=== PATIENT | female | born 1980 | race Caucasian/White ===

== ENCOUNTER → 2016-12-07 | Outpatient (CLI) | payer OTHER ==
[~2016-12-07] VITALS: Ht 167.6 cm; Wt 133.8 kg
[~2016-12-07] MED LIST: LIPITOR10 MG PO; PAXIL30 MG PO; PROTONIX40 MG PO; XANAX0.5 MG PO
== END | disposition home or self-care (01) ==
LOC: AMB 11:45
PROC: 0DJ08ZZ Inspection of Upper Intestinal Tract, Via Natural or Artificial Opening Endoscopic (ICD-10-PCS; principal; 2016-12-07)
DX: K29.70 Gastritis, unspecified, without bleeding (principal); K21.9 Gastro-esophageal reflux disease without esophagitis; E66.01 Morbid (severe) obesity due to excess calories; Z68.42 Body mass index [BMI] 45.0-49.9, adult; E28.2 Polycystic ovarian syndrome; Z87.891 Personal history of nicotine dependence; Z82.49 Family history of ischemic heart disease and other diseases of the circulatory system; Z83.49 Family history of other endocrine, nutritional and metabolic diseases
CPT/HCPCS: B4087; J2250

== ENCOUNTER 2017-01-19 06:43 | Inpatient (IN) | payer OTHER ==
[~2017-01-19] VITALS: Ht 170.2 cm; Wt 137.3 kg
[2017-01-19 07:35] VITALS: BP 134/80
[2017-01-19 12:55] VITALS: BP 141/87
[2017-01-19 19:06] VITALS: BP 164/97
[2017-01-19 20:15] VITALS: BP 131/69
[2017-01-19 23:57] VITALS: BP 134/73
[2017-01-20 03:50] VITALS: BP 158/94
[2017-01-20 05:19] LABS: POINT-OF-CARE METER ID UU14162508
[2017-01-20 06:57] LABS: ANION GAP 8 MEQ/L (2-14); CHLORIDE 102 MEQ/L (99-109); GFR ESTIMATE (CALCULATED) > 59 mL/min/; GLUCOSE 111 mg/dL (70-99); MAGNESIUM 2.1 mg/dl (1.3-2.7); POTASSIUM 4.4 MEQ/L (3.7-5.4); SAMPLE HEMOLYSIS CHECK 0; SAMPLE ICTERIC CHECK 0; SAMPLE LIPEMIA CHECK 0; SODIUM 138 MEQ/L (136-147); UREA NITROGEN (BUN) 10 mg/dL (9-23)
[2017-01-20 06:58] LABS: HEMATOCRIT 33.1 % (36.0-46.0); MCH 25.8 PG (29.0-34.0); MCHC 32.3 G/DL (30.0-36.0); MEAN PLAT.VOLUME 9.9 uM^3 (9.5-12.4); PLATELET COUNT 375 K/uL (156-360); RBC DIS.WIDTH-SD 47.1 % (39-53); RED BLOOD COUNT 4.14 M/uL (3.80-5.20)
[2017-01-20 08:08] VITALS: BP 138/90
[2017-01-20] MEDS ORDERED: HYDROCODON-ACE1 EAC7 PO (08:18)
== END 2017-01-20 09:17 | disposition home or self-care (01) | DRG 621 ==
LOC: 2SOUTH 06:43 → 2EAST 12:42 → 2SOUTH 15:05 → 2EAST 01-20 09:17
PROVIDERS: Surgery
PROC: 0DB64Z3 Excision of Stomach, Percutaneous Endoscopic Approach, Vertical (ICD-10-PCS; principal; 2017-01-19)
DX: E66.01 Morbid (severe) obesity due to excess calories (principal); Z68.42 Body mass index [BMI] 45.0-49.9, adult; E78.5 Hyperlipidemia, unspecified; F32.9 Major depressive disorder, single episode, unspecified; K21.9 Gastro-esophageal reflux disease without esophagitis; K58.9 Irritable bowel syndrome, unspecified; E28.2 Polycystic ovarian syndrome; M19.90 Unspecified osteoarthritis, unspecified site; F41.9 Anxiety disorder, unspecified
CPT/HCPCS: 80048; 82948; 83735; 84100; 85027; J0131; J0360; J0690; J1100; J1170; J1644; J1650; J1815; J1885; J2250; J2270; J2405; J2710; J3010; J3480; J7120; S0020